=== PATIENT | female | born 1980 | race Caucasian/White ===

== ENCOUNTER 2017-05-24 13:04 | Outpatient (RCR) | payer OTHER ==
[2014-06-10 09:13] VITALS: BMI 25.7
[~2017-05-24 13:04] MED LIST: ALPH50CA4 PO; BUTA1TAB14; ESCI20TA38 PO; GLUC1KIT4; INSU100V24 SQ; LACT1CAP6 PO; LETR2.5T4; MULT10VI3 IV; NYST15CR33; OMEG-11 PO; ONDA-2; PROM12.556; PROM25SU3; SUMA50TA35; TERC45CR
--- NOTE | 2017-05-26 13:10 | Medical Nutrition Therapy ---
Nutritional Education Nutrition Education Topic: Diabetic Nutrition Learning Readiness: Interested Teaching Methods: Discussion, Handout, Demonstration Response to Teaching: Verbalize understanding Teaching Recipient: Patient Nutrition Counseling: Late entry for 05/24/17: Provided education on Medtronic 670 insulin pump. Pt has been on a pump and transfered her basal, insulin sensitivity and Carb ratio to the medtronic 670 Pump. Basal rate is: 12am-3am: 0.85 3-6am: 0.9 6-9am: 0.95 9-12am: 0.875 Insulin sensitivity: 65 Carb ratio: 8 Will provide education on the 670 CGM sensors, manual mode and auto mode on 06/21. Pt was advised to check BG befroe meals, 2 hrs after meals, bedtime and 2:00 am to ensure BG is within acceptable range until then. Pt was advised on procedure when BG greater th 250 and reviewed 15-15 rule for hypoglycemia. 05/26 Pt states not haveing any issues with pump. Nutrition Monitoring & Eval RD Patient Assessment Time: 60 minutes Nutritional Comment: Provided 80 minute diabetes education focusing on insulin pump management Copies To Copies to: JOSE GUADALUPE LARIOS MD, BETH May 25, 2017 16:20
[2017-06-09] MEDS ORDERED: ALB6.7R INH (22:49)
[2017-06-09] MEDS ORDERED: ACET-1966 PO (22:49)
[2017-06-09] MEDS ORDERED: FLUT1DIS28 IH (22:49)
[2017-06-10] MEDS ORDERED: BENZ100C4 PO (00:19)
== END 2017-06-14 15:53 | disposition home or self-care (01) ==
LOC: DIET 13:04
DX: E10.9 Type 1 diabetes mellitus without complications (principal)
CPT/HCPCS: G0109 ×2

== ENCOUNTER → 2017-06-07 | Outpatient (CLI) | payer OTHER ==
[2014-06-10 09:13] VITALS: BMI 25.7
--- NOTE | 2017-06-07 11:53 | RADIOLOGY IMAGING REPORT ---
FACILITY: [facility] - [place] PATIENT NAME: Jennifer Ramos : 1980 MR: [id number] V: [id number] EXAM DATE: ORDERING PHYSICIAN: MAX KAISER TECHNOLOGIST: [place] [facility] [place] : 1980 Visit/Account:[id number] Date of Sevice: 06/07/2017 Exam type: CHEST PA AND LAT History: Influenza positive, cough, chest tightness Comparison: None. Findings: The lungs are free of acute effusions, infiltrates or edema. There is very mild central peribronchia l thickening. There is no evidence of a pneumothorax or pneumomediastinum. Cardiac silhouette is no rmal. The trachea is in midline. IMPRESSION: 1. Mild central peribronchial thickening which could be related to an acute peribronchial inflammato ry process Report Dictated By: Ilana Alexander MD at 06/07/2017 11:48 AM Report E-Signed By: Ilana Alexander MD at 06/07/2017 11:49 AM WSN:[id number]
== END ==
LOC: RAD 10:59
PROVIDERS: ATTEND Obstetrics & Gynecology
DX: R91.8 Other nonspecific abnormal finding of lung field (principal)
CPT/HCPCS: 71046

== ENCOUNTER 2017-06-09 22:32 | Emergency (ER) | payer OTHER ==
[2014-06-10 09:13] VITALS: Ht 160 cm; Wt 56.7 kg
[~2017-06-09] VITALS: Ht 160 cm; Wt 56.7 kg
[2017-06-09] MEDS ORDERED: ALB6.7R INH (22:49)
[2017-06-09] MEDS ORDERED: ACET-1966 PO (22:49)
[2017-06-09] MEDS ORDERED: FLUT1DIS28 IH (22:49)
[2017-06-09 23:00] VITALS: BP 97/65
--- NOTE | 2017-06-09 23:09 | ER Report ---
History and Physical Time Seen By MD: 22:48 Hx. of Stated Complaint: PATIENT HAS TIGHTNESS IN CHEST; WORRIED ABOUT PNEMONIA HPI/ROS CHIEF COMPLAINT: cough, worried about possible pneumonia. HISTORY OF PRESENT ILLNESS: This is a 36 year old female. She has been diagnosed with influenza a few days ago. Still with cough and chest tightness. Having fevers. On Tamiflu. Had been prescribed Albuterol and Advair because of wheezing, just started these today. Albuterol making her feel lightheaded and heart racing. Allergies: Coded Allergies: metoclopramide (Verified Allergy, Severe, EXTRAPARAMITAL EFFECTS, 06/09/17) thyroid, pork (Verified Allergy, Severe, HYPERGLYCEMIA, 06/09/17) tetracycline (Verified Allergy, Intermediate, RASH, 06/09/17) Home Meds Active Scripts Benzonatate 100 Mg Cap (TESSALON PERLE 100 MG CAP) 100 Mg Capsule, 100 MG PO TID Y for COUGH, #15 CAP 0 Refills Prov:ALFREDO ROMERO MD 06/10/17 Reported Medications Acetaminophen (TYLENOL) 325 Mg Tablet, 1000 MG PO, TAB 06/09/17 Fluticasone/Salmeterol (ADVAIR 250-50 DISKUS) 1 Each Disk.w.dev, 1 EACH IH 06/09/17 Albuterol Sulfate (PROVENTIL HFA) 6.7 Gm Inh, 1-2 PUFF INH 3-4XD, INH 06/09/17 Alpha Lipoic Acid (ALPHA LIPOIC ACID) Unknown Strength Capsule, PO DAILY, CAPSULE 02/20/17 Lactobacillus Combination No.4 (PROBIOTIC) 1 Each Capsule, 1 EACH PO QDAY, CAPSULE 02/20/17 [place]-3 Fatty Acids/Fish Oil (FISH OIL 1,000 MG CAPSULE) 1 Each Capsule, 1 EACH PO QDAY, CAPSULE 02/20/17 Mvi, Adult No.1 With Vit K (M.V.I. ADULT) Unknown Strength Vial, IV QDAY, VIAL 02/20/17 Escitalopram Oxalate (LEXAPRO) 20 Mg Tablet, 20 MG PO QDAY, TAB 02/20/17 Insulin Lispro (HUMALOG) 100 Unit/1 Ml Vial, 100 UNIT SQ, VIAL 02/20/17 Reviewed Nurses Notes: Yes Hx Smoking: No Smoking Status: Never Smoker Exposure to Second Hand Smoke?: No Hx Substance Use Disorder: No Constitutional Vital Sign - Last 24 Hours 06/09/17 06/09/17 06/09/17 06/09/17 22:38 22:41 22:50 23:00 Temp 101.2 Pulse 96 Resp 18 B/P (MAP) 122/74 (90) 122/74 116/63 (80) 97/65 (76) Pulse Ox 95 O2 Delivery Room Air 06/09/17 23:02 Pulse 96 Pulse Ox 94 Physical Exam General Appearance: The patient is alert, has no immediate need for airway protection and no current signs of toxicity. Respiratory: Chest is non tender, lungs with wheezing on expiration. No rales or rhonchi. Cardiac: regular rate and rhythm Gastrointestinal: Abdomen is soft and non tender, no masses, bowel sounds normal. DIFFERENTIAL DIAGNOSIS: After history and physical exam differential diagnosis was considered for influenza with fever and cough and trouble breathing. Medical Decision Making EKG/Imaging Imaging CHEST PA AND LATERAL 06/09/2017 10:59 PM. INDICATION: Cough, dyspnea, influenza. COMPARISON: 06/07/2017. FINDINGS: Lungs are well-expanded. The lungs are clear. No pneumothorax or pleural effusion. Pulmonary vasculature is unremarkable. Heart size is normal. IMPRESSION: No acute cardiopulmonary abnormality. Report Dictated By: Luciano Pickard MD at 06/09/2017 11:45 PM ED Course/Re-evaluation ED Course Chest x-ray without pneumonia. Reviewed this with the patient. Will try Benzonatate for cough. She can get some over the counter Mucinex D. She can continue to use her Advair and her Albuterol if helping. Decision to Disposition Date: Jun 10, 2017 Decision to Disposition Time: 00:17 Depart Departure Latest Vital Signs Vital Signs Date Time Temp Pulse Resp B/P (MAP) Pulse Ox O2 Delivery O2 Flow Rate FiO2 06/09/17 23:02 96 94 06/09/17 23:00 97/65 (76) 06/09/17 22:41 101.2 18 Room Air Impression: Primary Impression: Influenza Condition: Improved Disposition: HOME OR SELF-CARE Referrals: JOSE GUADALUPE LARIOS MD (PCP) New Scripts Benzonatate 100 Mg Cap (TESSALON PERLE 100 MG CAP) 100 Mg Capsule 100 MG PO TID Y for COUGH, #15 CAP 0 Refills Prov: ALFREDO ROMERO MD 06/10/17 Patient Instructions: Influenza (ED) Additional Instructions: Rest and increase fluid intake. Take Benzonatate 100mg capsules every 8 hours as needed for cough. Keep taking the Advair. You can use the albuterol as needed. ALFREDO ROMERO MD Jun 09, 2017 23:09
--- NOTE | 2017-06-09 23:51 | RADIOLOGY IMAGING REPORT ---
FACILITY: [facility] PATIENT NAME: Jennifer Ramos : 1980 MR: [id number] V: [id number] EXAM DATE: ORDERING PHYSICIAN: ALFREDO ROMERO TECHNOLOGIST: Location: [facility] Patient: Jennifer Ramos : 1980 Visit/Account:[id number] Date of Sevice: 06/09/2017 CHEST PA AND LATERAL 06/09/2017 10:59 PM. INDICATION: Cough, dyspnea, influenza. COMPARISON: 06/07/2017. FINDINGS: Lungs are well-expanded. The lungs are clear. No pneumothorax or pleural effusion. Pulmo nary vasculature is unremarkable. Heart size is normal. IMPRESSION: No acute cardiopulmonary abnormality. Report Dictated By: Luciano Pickard MD at 06/09/2017 11:45 PM Report E-Signed By: Luciano Pickard MD at 06/09/2017 11:47 PM WSN:[id number]
[2017-06-10] MEDS ORDERED: BENZONATATE 100 MG CAP PO ONE (00:15)
[2017-06-10] MEDS ORDERED: BENZ100C4 PO (00:19)
== END 2017-06-10 00:33 | disposition home or self-care (01) ==
LOC: ER 22:48
DX: J11.1 Influenza due to unidentified influenza virus with other respiratory manifestations (principal)
CPT/HCPCS: 71046; 99282

== ENCOUNTER → 2017-06-21 | Outpatient (CLI) | payer OTHER ==
[2014-06-10 09:13] VITALS: BMI 25.7
[~2017-06-21] MED LIST changes: +ACET-1966 PO; +ALB6.7R INH; +BENZ100C4 PO; +FLUT1DIS28 IH
--- NOTE | 2017-06-21 16:40 | Medical Nutrition Therapy ---
Nutritional Education Nutrition Education Topic: Diabetic Nutrition Learning Readiness: Interested Teaching Methods: Discussion, Handout, Demonstration Response to Teaching: Verbalize understanding Teaching Recipient: Patient Nutrition Counseling: Provided education on using Medtronic 670 insulin pump. Reviewed CGM and transmitter usage, cleaning, charging. Pt inserted CGM and connected to insulin pump. Pt will use CGM with manual mode of pump for 1 week and then can switch over to automatic mode. Reviewed auto mode with pt and expectations including pump adjusting basal delivery based on CGM, basal delivery stopping when anticiated low, need for calibration 2-3X/day and need to cont bolis for meal and correction dose when recommended by pump. Pt has been asked to download reports on [employer] to allow monitoring. Nutrition Monitoring & Eval RD Patient Assessment Time: [address] Assessment Type: RD Education Nutritional Comment: Provided 60 minutes diabetes education in group setting focusing on insulin pump management Copies To Copies to: JOSE GUADALUPE LARIOS MD, BETH Jun 21, 2017 16:39
== END ==
LOC: DIET 10:34
PROVIDERS: ATTEND Naturopath
DX: E10.9 Type 1 diabetes mellitus without complications (principal); Z79.4 Long term (current) use of insulin
CPT/HCPCS: G0109 ×2

== ENCOUNTER → 2017-12-13 | Outpatient (CLI) | payer OTHER ==
[2014-06-10 09:13] VITALS: BMI 25.7
[~2017-12-13] MED LIST changes: +GADOBENATE 529MG/1ML 15ML VIAL IVP ONE
--- NOTE | 2017-12-13 15:45 | RADIOLOGY IMAGING REPORT ---
[place] [facility] [place] NAME: Jennifer Ramos : 1980 MR: [id number] V: [id number] EXAM DATE: ORDERING PHYSICIAN: MAIRA METZGER TECHNOLOGIST: Location: [facility] [place] Patient: Jennifer Ramos : 1980 Visit/Account:[id number] Date of Sevice: 12/13/2017 Examination: MR brain without and with contrast History: Pain Comparison: December 16, 2016 Technique: Multiplane MR imaging was performed through the brain without and with contrast. 15 cc IV multihance was administered. Findings: Diffusion: None Ventricles: Normal Midline shift: None Extraxial fluid: None Midline craniocervical structures: Normal Parenchyma: Unchanged in size right parietal deep white matter cavernous malformation measures approx imately 9 mm, axial T2 image 17. Right basal ganglia cavernous malformation measures 2.4 cm AP dimension (previously 2.3 cm) by 2 cm c raniocaudad (previously 1.9 cm). This is unchanged in transverse dimension measuring 1.9 cm. Both cavernous malformations are partially hyperintense on precontrast T1 acquisitions as before. There is enhancement within the dominant right basal ganglia cavernous malformation as before. Vascular flow voids: Normal Orbits and paranasal sinuses: Normal Impression: 1. No acute intracranial abnormality. 2. Right basal ganglia cavernous malformation has minimally increased in size in the AP and cranioca udad dimensions now measuring 2.4 cm AP by 2 cm craniocaudad (previously 2.3 x 1.9 cm). 3. Unchanged right parietal lobe cavernous malformation measures up to 9 mm. 4. Otherwise normal brain MR without and with contrast. Report Dictated By: Derick Magdaleno MD at 12/13/2017 3:21 PM Report E-Signed By: Derick Magdaleno MD at 12/13/2017 3:41 PM WSN:[id number]
== END ==
LOC: MRI 02:41
PROVIDERS: ATTEND Neurological Surgery
DX: Q28.3 Other malformations of cerebral vessels (principal)
CPT/HCPCS: 36415; 70553; 82565; 84520; A9577

== ENCOUNTER 2018-03-07 12:00 | Outpatient (RCR) | payer OTHER ==
[2014-06-10 09:13] VITALS: BMI 25.7
[~2018-03-07 12:00] MED LIST changes: -GADOBENATE 529MG/1ML 15ML VIAL IVP ONE
--- NOTE | 2018-03-07 14:16 | Medical Nutrition Therapy ---
Nutritional Education Nutrition Education Topic: Diabetic Nutrition Learning Readiness: Eager Teaching Methods: Demonstration Response to Teaching: Verbalize understanding Teaching Recipient: Patient Nutrition Counseling: Pt's insulin pump broke and pt needed new pump. Worked with pt on inputing data into new pump and syncing pump and BG meter. Pt successfully attached canula and started new pump. Nutrition Monitoring & Eval RD Patient Assessment Time: [address] Assessment Type: RD Education Nutritional Comment: provided 60 minutes f/u education on insulin pump management. Copies To Copies to: ANGEL SANCHZE ND ; ZAHRAA PRUITT Mar 07, 2018 14:16
== END 2018-04-11 ==
LOC: DIET 12:00
PROVIDERS: ATTEND Naturopath
DX: E10.9 Type 1 diabetes mellitus without complications (principal)
CPT/HCPCS: G0108 ×2